=== PATIENT | male | born 1965 ===

== ENCOUNTER 2020-04-30 07:29 | Outpatient (CLI) | payer OTHER, SELFPAY ==
--- NOTE | 2020-05-31 16:09 | WPDHOMESLEEP ---
Sleep Study - Home Unattended Date of Study: 04/30/20 Ordering Provider: Rocky Mednes MD Interpreting Physician: Anu Garcia MD Home Sleep Study Type: Apnea Link Air Height: 1.85 m Weight: 102.058 kg Body Mass Index: 29.7 Neck Circumference (inches): 16.5 Cabins: 8 Reason for Sleep Study Loud snoring Sleep History Balwinder Tenorio is a 54 year-old man who complains of snoring loudly enough that others complain. He occasionally awakens at night with heartburn, belching or coughing. He rarely awakens from sleep feeling short of breath. he frequently has trouble sleeping with a cold. He occasionally gasp for breath at night. He frequently has breathing problems at night observed by others. He is not sweat excessively at night or notices his heart pounding irregularly at night. Occasionally falls asleep during the day on weekends. He does not fall asleep involuntarily or while driving. He does not fall asleep during physical effort. He does not have loss of muscle tone was strong emotion. He does not have daytime difficulties due to excessive sleepiness. He works as Director of [employer]. he does not feel paralyzed on waking or falling asleep. He occasionally has vivid dreamlike scenes upon awakening or falling asleep. He is not afraid to go to sleep. He does not have nightmares. He occasionally remembers his dreams. He frequently has racing thoughts. He occasionally feels sad or depressed. He rarely has anxiety. He rarely has muscular tension. He occasionally notices parts of his body jerking. he occasionally kicks at night. He frequently has crawling and aching feelings in his legs. He frequently has leg pain during the night. He does not have morning jaw pain. He rarely grinds his teeth at night. He rarely is bothered by pain during the day. He rarely has awakened by pain at night. He occasionally wakes up feeling stiff in the morning rarely with sore or achy muscles. Normal bedtime is 9:00 p.m. falling asleep within 5 minutes, typically waking twice at night. When he wakes during the night, he looks at the clock, then returns to sleep quickly. He wakes for the day at 5:00 a.m.. He estimates that he gets 8 hours of sleep at night. On the weekends, he goes to bed 1 hour later at 10:00 p.m. and wakes at 7:00 a.m.. He does not take naps. A short nap is not refreshing. He is usually drowsy in the morning for 1 hour. He feels better later in the day. Habits: Quit tobacco 6 years ago. No caffeine. Alcohol 2-3 per day. No recreational drug. [facility] Past Medical History Medical History (Updated 05/31/20 @ 17:40 by Anu Garcia MD) Atrial fibrillation Hay fever Hypertension Hypothyroidism Surgical History Surgical History (Updated 05/31/20 @ 16:13 by Anu Garcia MD) Status post tonsillectomy Family History Family History (Updated 05/31/20 @ 16:36 by Anu Garcia MD) Mother Multiple sclerosis Obstructive sleep apnea Father Diabetes mellitus Hypertension Social History Social History (Updated 05/31/20 @ 16:17 by Anu Garcia MD) Smoking packs per day: 1 Smoking cigarettes per day: 20.0 Years smoked: 17 Smoking pack-years: 17.00 Smoking status: Former smoker Alcohol intake: current Alcohol use details: 2-3 beers daily with dinner Medications Medications: levothyroxine 150 mcg daily Sleep Procedure This test was performed using 4 channel monitoring including respiratory effort channel, snoring channel, heart rate channel, and oxygen saturation channel. This study was scored using CMS guidelines. Sleep Architecture Not applicable for home sleep test. Respiratory Analysis The recording time is 7 hours 45 minutes. Evaluation time is 7 hours 33 minutes. The apnea-hypopnea index is 5 with 5 obstructive apneas and 33 hypopneas. There is no evidence of Curtis-Hardy respirations. Oximetry Data The oxygen desaturation index is 4. Lowest de
[2020-05-31 17:53] VITALS: BMI 29.7
== END 2020-04-30 07:30 | disposition home or self-care (01) ==
LOC: ANHCSM 07:30
PROVIDERS: Visit Provider Student in an Organized Health Care Education/Training Program
DX: G47.33 Obstructive sleep apnea (adult) (pediatric) (principal)
CPT/HCPCS: 95806